=== PATIENT | female | born 1975 | race Asian ===

== ENCOUNTER 2016-08-07 18:05 | Emergency (ER) | payer OTHER ==
[~2016-08-07] VITALS: Ht 154.9 cm; Wt 50.3 kg
[2016-08-07 21:25] VITALS: BP 128/81
[2016-08-07] MEDS ORDERED: methylPREDNISolone SOD SUCC 125 MG/2 ML VL IM ONE (21:45)
[2016-08-07] MEDS ORDERED: SUMAtriptan SUCCINATE 6 MG/0.5 ML VL SC ONE (21:45)
[2016-08-07] MEDS: HYDROcodone-ACET 5/325MG TAB PO ONE ×2 (22:51→23:17)
== END 2016-08-07 23:18 | disposition home or self-care (01) ==
LOC: ER 18:09
DX: R51 Headache (principal); J32.9 Chronic sinusitis, unspecified
CPT/HCPCS: 70450; 96372; 99284; J2930; J3030